=== PATIENT | male | born 1965 | race African-American/Black ===

== ENCOUNTER 2020-03-26 12:57 | Inpatient (IN) | payer OTHER ==
--- NOTE | 2020-03-26 13:24 | BHS.RME ---
Substance Use & Tx History - Substance Use History Alcohol Substance amount: 4 bottles 40 oz Frequency of use: Daily Substance route: Oral Date of Last Use: 03/22/20 Cocaine-Crack Substance amount: $80 Frequency of use: Less than 3 times per week Substance route: Smoking Date of Last Use: 03/21/20 Nicotine Substance amount: 1 pack Frequency of use: Daily Substance route: Smoking Date of Last Use: 03/26/20 Physical/Psych/Mental Status - Behavior Eye Contact: Normal - Cooperativeness Cooperativeness: Cooperative - Thinking Thought Processes: Tight, Logical, Goal Directed - Physical Health Problems Is patient presently having any pain?: No Does patient presently have any injuries (include location): No Does patient currently have a fever: No Is patient : No CIWA Nausea/Vomitin-No Nausea/No Vomiting Muscle Tremors: None Anxiety: 0-No Anxiety, at Ease Agitation: 0-Normal Activity Paroxysmal Sweats: No Perspiration Orientation: 0-Oriented Tacttile Disturbances: 0-None Auditory Disturbances: 0-None Visual Disturbances: 0-None Headache: 0-None Present CIWA-Ar Total Score: 0
[2020-03-26 17:22] VITALS: BMI 29.5
--- NOTE | 2020-03-26 17:52 | HP ---
CIWA Score Nausea/Vomitin-No Nausea/No Vomiting Muscle Tremors: None Anxiety: 0-No Anxiety, at Ease Agitation: 0-Normal Activity Paroxysmal Sweats: No Perspiration Orientation: 0-Oriented Tacttile Disturbances: 0-None Auditory Disturbances: 0-None Visual Disturbances: 0-None Headache: 0-None Present CIWA-Ar Total Score: 0 - Admission Criteria OASAS Guidelines: Admission for Medically Managed Detox: Requires at least one of the followin. CIWA greater than 12 2. Seizures within the past 24 hours 3. Delirium tremens within the past 24 hours 4. Hallucinations within the past 24 hours 5. Acute intervention needed for co occurring medical disorder 6. Acute intervention needed for co occurring psychiatric disorder 7. Severe withdrawal that cannot be handled at a lower level of care (continued vomiting, continued diarrhea, abnormal vital signs) requiring intravenous medication and/or fluids 8. Admitting History and Physical - Admission History of Present Illness: 54 y.o. M PMHx HTN presenting to [facility] for rehab. Patient was examined in the room and is in no acute distress. 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 Back surgery pin placement. 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 History of Recent Travel: No Admission ROS [facility] Allergies/Adverse Reactions: Allergies Allergy/AdvReac Type Severity Reaction Status Date / Time Penicillins Allergy Verified 03/26/20 14:46 Exam Limitations: No Limitations - Ebola screening Have you traveled outside of the country in the last 21 days: No Have you had contact with anyone from an Ebola affected area: No Have you been sick,other than usual withdrawal symptoms: No Do you have a fever: No - Review of Systems Constitutional: No Symptoms Reported EENT: denies: Blurred Vision, Double Vision Respiratory: reports: SOB with Exertion. denies: Cough Cardiac: denies: Chest Pain, Lightheadedness GI: denies: Constipated, Diarrhea, Nausea, Vomiting : denies: Burning, Dysuria Musculoskeletal: denies: Muscle Pain, Muscle Weakness Neuro: denies: Headache, Dizziness Hematology: denies: Blood Clots Psychiatric: reports: No Sypmtoms Reported, Judgement Intact, Mood/Affect Appropiate, Orientated x3 Patient History - Smoking Cessation Smoking history: Current every day smoker Initiated information on smoking cessation: Yes 'Breaking Loose' booklet given: 03/26/20 Admission Physical Exam [facility] - Vital Signs Vital Signs: Vital Signs - 24 hr 03/26/20 17:20 Temperature 97.7 F Pulse Rate 81 Respiratory 18 Rate Blood Pressure 118/74 - Physical General Appearance: Yes: Within Normal Limits, No Apparent Distress, Nourished, Appropriately Dressed Respiratory: Yes: Within Normal Limits, Lungs Clear, Normal Breath Sounds, No Respiratory Distress, No Accessory Muscle Use Cardiology: Yes: Within Normal Limits, Regular Rhythm, Regular Rate. No: JVD, Murmur Abdominal: Yes: Within Normal Limits, Normal Bowel Sounds, Non Tender, Flat, Soft. No: Tenderness Back: Yes: Within Normal Limits, Normal Inspection. No: CVA Tenderness Extremities: Yes: Within Normal Limits, Normal Inspection, Normal Range of Motion, Non-Tender. No: Swelling Neurological: Yes: Within Normal Limits, Fully Oriented, Alert, Normal Mood/Affect, Normal Response Integumentary: Yes: Within Normal Limits, Normal Color, Dry, Warm - Diagnostic (1) Crack cocaine use Current Visit: Yes Status: Acute (2) Alcohol dependence Current Visit: Yes Status: Acute (3) Hypertension Current Visit: Yes Status: Acute Cleared for Admission [facility] - Detox or Rehab Claeared for Rehab Admission: Yes Breathalyzer - Breathalyzer Breathalyzer: 0 Vital Signs - Vital Signs Vital signs refused: Yes Temperature: 97.7 F Pulse Rate: 81 Respiratory Rate: 18 Blood Pressure: 118/74 - Height Height: 1.96 m - Weight Weight: 112.945 kg - BMI Body Mass Index (BMI): 29.5 Urine Drug Screen - Test Device Lot number: [id number] Expiration date: 02/11/22 - Control Is test valid?: Yes - Results Drug screen NEGATIVE: No Urine drug screen results: THC-Marijuana, BULL-Cocaine Inpatient Rehab Admission - Rehab Decision to Admit Inpatient rehab admission?: Yes - Initial Determination Are CD services needed?: No Free of communicable disease: No Not in need of hospitalization: No - Rehab Admission Criteria Previous failed treatment: Yes Poor recovery environment: Yes Comorbidities: Yes Lacks judgement: No Patient is meeting Inpatient Rehab admission criteria:: Yes
[2020-03-26] MEDS ORDERED: MAGNESIUM CITRATE 300 ML BOTTLE PO PRN (17:58)
[2020-03-26] MEDS ORDERED: LOPERAMIDE HCL 2 MG CAPSULE PO PRN (17:58)
[2020-03-26] MEDS ORDERED: guaiFENesin 200 MG/10 ML 10 ML UNIT-DOSE CUPS PO PRN (17:58)
[2020-03-26] MEDS ORDERED: P-EPHED 60MG/TRIPROLIDI 2.5MG TABLET PO PRN (17:58)
[2020-03-26] MEDS ORDERED: MAGNESIUM HYDROX 2400MG/30ML ORAL SUSPENSION 30 ML CUP PO PRN (17:58)
[2020-03-26] MEDS ORDERED: ACETAMINOPHEN 325 MG TABLET (FP) PO PRN (17:58)
[2020-03-26] MEDS ORDERED: IBUPROFEN 400 MG TABLET (FP) PO PRN (17:58)
[2020-03-26] MEDS ORDERED: NICOTINE POLACRILEX 2 MG GUM BC PRN (17:58)
[2020-03-26] MEDS ORDERED: TUBERCULIN PPD 5 TU/0.1ML VIAL ID ONE (19:47)
[2020-03-26] MEDS: hydrOXYzine PAMOATE 25 MG CAPSULE (FP) PO SCH ×2 (19:51→21:58)
[2020-03-26] MEDS: THIAMINE HCL 100 MG TABLET (FP) PO SCH (21:58)
[2020-03-26] MEDS: MELATONIN 5 MG TABLETS PO SCH (21:58)
[2020-03-27] MEDS: hydrOXYzine PAMOATE 25 MG CAPSULE (FP) PO SCH (06:36)
--- NOTE | 2020-03-27 08:32 | PN ---
[facility] Progress Note Note: Patient requesting that we discontinue Vistaril. Patient's request was honored.
--- NOTE | 2020-03-27 09:54 | EKG ---
Test Reason : Blood Pressure : / mmHG Vent. Rate : 052 BPM Atrial Rate : 052 BPM P-R Int : 144 ms QRS Dur : 102 ms QT Int : 408 ms P-R-T Axes : 041 046 038 degrees QTc Int : 379 ms SINUS BRADYCARDIA OTHERWISE NORMAL ECG NO PREVIOUS ECGS AVAILABLE Confirmed by ROSHAN RUANO MD ([id number]) on 03/27/2020 9:54:01 AM Referred By: Confirmed By:ROSHAN RUANO MD
[2020-03-27] MEDS: PRENATAL VITAMINS W/ FOLIC ACID TABLET (FP) PO SCH (10:25)
[2020-03-27] MEDS: NICOTINE 7 MG/24 HOURS TOPICAL PATCH TD SCH (10:25)
[2020-03-27 11:06] LABS: BILIRUBIN,TOTAL 0.9 mg/dL (0.2-1); BLOOD UREA NITROGEN 18.4 mg/dL (7-18); CALCIUM 9.2 mg/dL (8.5-10.1); CREATININE 1.4 mg/dL (0.55-1.3); POTASSIUM 4.2 mmol/L (3.5-5.1); TOT PROT 6.5 g/dl (6.4-8.2)
[2020-03-27 11:12] LABS: HEMATOCRIT 39.6 % (35.4-49); HEMOGLOBIN 12.8 GM/dL (11.7-16.9); MCH 28.2 pg (25.7-33.7); MCHC 32.4 g/dl (32.0-35.9); MEAN CELL VOLUME 87.2 fl (80-96); MEAN PLT VOLUME 8.8 fl (7.5-11.1); PLATELET COUNT 331 K/MM3 (134-434); RBC 4.54 M/mm3 (4.00-5.60); RDW 13.9 % (11.9-15.9); WHITE BLOOD COUNT 5.3 K/mm3 (4.0-10.0)
[2020-03-27 11:38] LABS: SICKLE CELL SCREEN NEGATIVE (NEGATIVE)
[2020-03-27] MEDS: THIAMINE HCL 100 MG TABLET (FP) PO SCH (21:44)
[2020-03-27] MEDS: MELATONIN 5 MG TABLETS PO SCH (21:44)
[2020-03-28] MEDS: NICOTINE 7 MG/24 HOURS TOPICAL PATCH TD SCH (10:51)
[2020-03-28] MEDS: PRENATAL VITAMINS W/ FOLIC ACID TABLET (FP) PO SCH (10:51)
[2020-03-28] MEDS: MELATONIN 5 MG TABLETS PO SCH (21:13)
[2020-03-28] MEDS: THIAMINE HCL 100 MG TABLET (FP) PO SCH (21:13)
[2020-03-29] MEDS: PRENATAL VITAMINS W/ FOLIC ACID TABLET (FP) PO SCH (10:43)
[2020-03-29] MEDS: NICOTINE 7 MG/24 HOURS TOPICAL PATCH TD SCH (10:43)
[2020-03-29] MEDS: MELATONIN 5 MG TABLETS PO SCH (21:44)
[2020-03-29] MEDS: THIAMINE HCL 100 MG TABLET (FP) PO SCH (21:44)
[2020-03-30] MEDS: NICOTINE 7 MG/24 HOURS TOPICAL PATCH TD SCH (09:36)
[2020-03-30] MEDS: PRENATAL VITAMINS W/ FOLIC ACID TABLET (FP) PO SCH (09:36)
[2020-03-30 16:36] LABS: URINE APPEARANCE CLEAR; URINE BILIRUBIN NEGATIVE (NEGATIVE); URINE COLOR YELLOW; URINE GLUCOSE (UA) NEGATIVE (NEGATIVE); URINE KETONE NEGATIVE (NEGATIVE); URINE LEUK ESTERASE NEGATIVE (NEGATIVE); URINE NITRITE NEGATIVE (NEGATIVE); URINE PROTEIN NEGATIVE (NEGATIVE); URINE UROBILINOGEN 0.2 mg/dL (0.2-1.0)
[2020-03-30] MEDS: MELATONIN 5 MG TABLETS PO SCH (21:18)
[2020-03-30] MEDS: THIAMINE HCL 100 MG TABLET (FP) PO SCH (21:18)
--- NOTE | 2020-03-31 08:30 | PN ---
Teaching Attending Note Name of Resident: Neptali Banks ATTENDING PHYSICIAN STATEMENT I saw and evaluated the patient. I reviewed the resident's note and discussed the case with the resident. I agree with the resident's findings and plan as documented. SUBJECTIVE: OBJECTIVE: ASSESSMENT AND PLAN: Agree with resident's findings and plan for detox.
[2020-03-31] MEDS: NICOTINE 7 MG/24 HOURS TOPICAL PATCH TD SCH (10:42)
[2020-03-31] MEDS: PRENATAL VITAMINS W/ FOLIC ACID TABLET (FP) PO SCH (10:43)
[2020-03-31] MEDS: COLLOIDAL OATMEAL 1 BAR EACH TP PRN (11:29)
[2020-03-31] MEDS ORDERED: PT OWN MED DRAWER 7, Y5N ONE (18:35)
[2020-03-31] MEDS: MELATONIN 5 MG TABLETS PO SCH (22:07)
[2020-03-31] MEDS: THIAMINE HCL 100 MG TABLET (FP) PO SCH (22:07)
[2020-03-31] MEDS: MINERAL OIL/PETROLAT/WATER TOPICAL CREAM 113 GM JAR TP SCH (22:08)
[2020-04-01] MEDS: MAG HYDROX/AL HYDROX/SIMETH 30 ML UNIT-DOSE CUP PO PRN ×2 (01:43→07:34)
--- NOTE | 2020-04-01 01:49 | PN ---
[facility] Progress Note Note: pt c/o sudden onset left sided back pain this evening when lying down , after taking a shower . Denies trauma . Denies radiation of pain . Denies dysuria . h/o spine surgery at age 16 . Vital Signs - 24 hr 03/31/20 03/31/20 03/31/20 06:10 14:52 20:27 Temperature 98.5 F 97.9 F Pulse Rate 52 L Respiratory 18 Rate Blood Pressure 130/64 O2 Sat by Pulse 98 97 99 Oximetry (%) O : left flank tender to palpation . Antalgic gait . Neuro intact CBC, BMP 03/27/20 08:00 03/27/20 08:00 UA normal 03/27 . P : Tylenol, Robaxin, Lidocaine patch . Encouraged fluids endorsed to day staff for f/up
[2020-04-01] MEDS ORDERED: METHOCARBAMOL 500 MG TABLET PO ONE (01:50)
[2020-04-01] MEDS ORDERED: LIDOCAINE 5% TOPICAL PATCH TP ONE (04:00)
[2020-04-01] MEDS: PRENATAL VITAMINS W/ FOLIC ACID TABLET (FP) PO SCH (10:49)
[2020-04-01] MEDS: NICOTINE 7 MG/24 HOURS TOPICAL PATCH TD SCH (10:49)
[2020-04-01] MEDS: METHOCARBAMOL 500 MG TABLET PO SCH ×4 (10:52→21:14)
[2020-04-01] MEDS: MINERAL OIL/PETROLAT/WATER TOPICAL CREAM 113 GM JAR TP SCH ×2 (10:53→21:16)
[2020-04-01] MEDS ORDERED: IBUPROFEN 600 MG TABLET (FP) PO PRN (13:51)
[2020-04-01] MEDS ORDERED: LIDOCAINE PATCH REMOVAL MC ONE (14:00)
[2020-04-01] MEDS: COLLOIDAL OATMEAL 1 BAR EACH TP PRN (14:09)
[2020-04-01] MEDS: LIDOCAINE 5% TOPICAL PATCH TP SCH (14:53)
[2020-04-01] MEDS: THIAMINE HCL 100 MG TABLET (FP) PO SCH (21:14)
[2020-04-01] MEDS: MELATONIN 5 MG TABLETS PO SCH (21:14)
[2020-04-01] MEDS: LIDOCAINE PATCH REMOVAL MC SCH (21:14)
[2020-04-02] MEDS: LIDOCAINE 5% TOPICAL PATCH TP SCH (10:11)
[2020-04-02] MEDS: PRENATAL VITAMINS W/ FOLIC ACID TABLET (FP) PO SCH (10:11)
[2020-04-02] MEDS: NICOTINE 7 MG/24 HOURS TOPICAL PATCH TD SCH (10:12)
[2020-04-02] MEDS: MINERAL OIL/PETROLAT/WATER TOPICAL CREAM 113 GM JAR TP PRN (10:13)
[2020-04-02] MEDS: METHOCARBAMOL 500 MG TABLET PO SCH ×4 (10:13→21:45)
[2020-04-02] MEDS: MINERAL OIL/PETROLAT/WATER TOPICAL CREAM 113 GM JAR TP SCH ×2 (10:14→21:46)
[2020-04-02] MEDS: LIDOCAINE PATCH REMOVAL MC SCH (21:45)
[2020-04-02] MEDS: THIAMINE HCL 100 MG TABLET (FP) PO SCH (21:45)
[2020-04-02] MEDS: MELATONIN 5 MG TABLETS PO SCH (21:45)
[2020-04-03] MEDS: NICOTINE 7 MG/24 HOURS TOPICAL PATCH TD SCH (10:29)
[2020-04-03] MEDS: MINERAL OIL/PETROLAT/WATER TOPICAL CREAM 113 GM JAR TP SCH (10:29)
[2020-04-03] MEDS: METHOCARBAMOL 500 MG TABLET PO SCH ×4 (10:30→21:14)
[2020-04-03] MEDS: LIDOCAINE 5% TOPICAL PATCH TP SCH (10:30)
[2020-04-03] MEDS: PRENATAL VITAMINS W/ FOLIC ACID TABLET (FP) PO SCH (10:30)
[2020-04-03] MEDS: MINERAL OIL/PETROLAT/WATER TOPICAL CREAM 113 GM JAR TP PRN (15:17)
[2020-04-03] MEDS ORDERED: PT OWN MED DRAWER 7, Y5N ONE (15:18)
[2020-04-03] MEDS: MELATONIN 5 MG TABLETS PO SCH (21:14)
[2020-04-03] MEDS: THIAMINE HCL 100 MG TABLET (FP) PO SCH (21:14)
[2020-04-03] MEDS: LIDOCAINE PATCH REMOVAL MC SCH (21:15)
[2020-04-04] MEDS: COLLOIDAL OATMEAL 1 BAR EACH TP PRN (06:56)
[2020-04-04] MEDS: LIDOCAINE 5% TOPICAL PATCH TP SCH (10:34)
[2020-04-04] MEDS: PRENATAL VITAMINS W/ FOLIC ACID TABLET (FP) PO SCH (10:35)
[2020-04-04] MEDS: METHOCARBAMOL 500 MG TABLET PO SCH ×4 (10:35→21:22)
[2020-04-04] MEDS: NICOTINE 7 MG/24 HOURS TOPICAL PATCH TD SCH (10:35)
[2020-04-04] MEDS: LIDOCAINE PATCH REMOVAL MC SCH (21:21)
[2020-04-04] MEDS: THIAMINE HCL 100 MG TABLET (FP) PO SCH (21:22)
[2020-04-04] MEDS: MELATONIN 5 MG TABLETS PO SCH (21:22)
[2020-04-05] MEDS: PRENATAL VITAMINS W/ FOLIC ACID TABLET (FP) PO SCH (10:25)
[2020-04-05] MEDS: LIDOCAINE 5% TOPICAL PATCH TP SCH (10:25)
[2020-04-05] MEDS: NICOTINE 7 MG/24 HOURS TOPICAL PATCH TD SCH (10:25)
[2020-04-05] MEDS: METHOCARBAMOL 500 MG TABLET PO SCH ×4 (10:25→21:56)
[2020-04-05] MEDS: THIAMINE HCL 100 MG TABLET (FP) PO SCH (21:56)
[2020-04-05] MEDS: MELATONIN 5 MG TABLETS PO SCH (21:56)
[2020-04-05] MEDS: LIDOCAINE PATCH REMOVAL MC SCH (21:56)
[2020-04-05] MEDS: COLLOIDAL OATMEAL 1 BAR EACH TP PRN (21:58)
[2020-04-06] MEDS: PRENATAL VITAMINS W/ FOLIC ACID TABLET (FP) PO SCH (10:42)
[2020-04-06] MEDS: NICOTINE 7 MG/24 HOURS TOPICAL PATCH TD SCH (10:42)
[2020-04-06] MEDS: METHOCARBAMOL 500 MG TABLET PO SCH ×4 (10:43→22:09)
[2020-04-06] MEDS: LIDOCAINE 5% TOPICAL PATCH TP SCH (10:43)
[2020-04-06] MEDS: LIDOCAINE PATCH REMOVAL MC SCH (22:10)
[2020-04-06] MEDS: MELATONIN 5 MG TABLETS PO SCH (22:10)
[2020-04-06] MEDS: THIAMINE HCL 100 MG TABLET (FP) PO SCH (22:10)
[2020-04-06] MEDS: COLLOIDAL OATMEAL 1 BAR EACH TP PRN (22:11)
[2020-04-07 06:59] VITALS: BP 132/75; PULSE 52; TEMP 96.9
--- NOTE | 2020-04-07 09:44 | DS ---
[facility] Rehab Discharge Summary - [facility] Rehab Discharge Summary Admission Date: 03/26/20 Discharge Date: 04/07/20 - History Present History: Alcohol dependence, Cocaine dependence - Discharge Physical Exam Vital Signs: Vital Signs Temperature 96.9 F L 04/07/20 06:23 Pulse Rate 52 L 04/07/20 06:23 Respiratory Rate 18 04/07/20 06:23 Blood Pressure 132/75 04/07/20 06:23 O2 Sat by Pulse Oximetry (%) 96 04/07/20 06:23 ROS: denies shakes, headache, sweats, alcohol and cocaine cravings PE: alert and oriented x 3 skin warm and dry +perrla, eoms intact bl gi nt, nd ext full rom, amb ad milo no tremors denies SI/HI A/P: Alcohol dependence Cocaine dependence HTN Patient is medically stable for discharge To arranged aftercare independently due to pt preference. Patient states " I [place] [facility] go [facility] in [facility] However, patient could not remember name of facility. - Treatment Discharge Condition: Discharge condition good, Rehabilitated safely, Responded well, Outpatient referral accepted Hospital Course: Patient discharged from rehab today for alcohol and cocaine dependence. Patient is medically stable and denies SI/HI. During course of treatment, patient attended group meetings and 1:1 sessions with counseling team. He did have episodes of verbal aggression towards peers and staff. Patient redirected during these episodes by staff effectively and no physical altercations occurred during treatment. Aftercare to be arranged independently by patient as he prefers to arranged his own aftercare. Patient medically advised to follow up with PCP as recommended and to attend NA/AA group meetings to prevent relapse. Ambulatory Orders Methocarbamol [Robaxin -] 500 mg PO BID #20 tablet 04/07/20 - Medication Discharge Medications: Ambulatory Orders Methocarbamol [Robaxin -] 500 mg PO BID #20 tablet 04/07/20 - Medication-Assisted Treatment (MAT) Medication-Assisted Treatment (MAT): No - Discharge Instructions Diet, activity, other medical instructions: Diet: LUL as tolerated Activity: amb ad milo as tolerated Other medical instructions: f/u with pcp as recommended - Follow-up Referral Minutes to complete discharge: 30 - AMA Did Patient Leave Against Medical Advice: No
== END 2020-04-07 09:31 | disposition home or self-care (01) | DRG 772 ==
LOC: YASAS 12:57 → Y3W 18:17
PROVIDERS: ADMIT Allergy & Immunology; ATTEND Allergy & Immunology
PROC: HZ42ZZZ Group Counseling for Substance Abuse Treatment, Cognitive-Behavioral (ICD-10-PCS; principal; 2020-03-26)
DX: F10.20 Alcohol dependence, uncomplicated (principal); F14.20 Cocaine dependence, uncomplicated; F17.210 Nicotine dependence, cigarettes, uncomplicated; I10 Essential (primary) hypertension; M54.89 Other dorsalgia; R26.89 Other abnormalities of gait and mobility; Z99.89 Dependence on other enabling machines and devices; Z88.0 Allergy status to penicillin
CPT/HCPCS: 36415; 80053; 81003; 85027; 85660; 86780; 93005; 93010

== ENCOUNTER 2020-11-17 13:23 | Inpatient (IN) | payer OTHER ==
[2020-11-17 15:22] VITALS: BMI 30.6
[2020-11-17] MEDS ORDERED: IBUPROFEN 400 MG TABLET (FP) PO PRN (19:58)
[2020-11-17] MEDS ORDERED: P-EPHED 60MG/TRIPROLIDI 2.5MG TABLET PO PRN (19:58)
[2020-11-17] MEDS ORDERED: LOPERAMIDE HCL 2 MG CAPSULE PO PRN (19:58)
[2020-11-17] MEDS ORDERED: MAGNESIUM HYDROX 2400MG/30ML ORAL SUSPENSION 30 ML CUP PO PRN (19:58)
[2020-11-17] MEDS ORDERED: ACETAMINOPHEN 325 MG TABLET (FP) PO PRN (19:58)
[2020-11-17] MEDS ORDERED: hydrOXYzine PAMOATE 25 MG CAPSULE (FP) PO PRN (19:58)
[2020-11-17] MEDS ORDERED: guaiFENesin 200 MG/10 ML 10 ML UNIT-DOSE CUPS PO PRN (19:58)
[2020-11-17] MEDS ORDERED: MAGNESIUM CITRATE 300 ML BOTTLE PO PRN (19:58)
[2020-11-17] MEDS: MELATONIN 5 MG TABLETS PO SCH (22:45)
[2020-11-17] MEDS: THIAMINE HCL 100 MG TABLET (FP) PO SCH (22:46)
[2020-11-18 09:51] LABS: HEMOGLOBIN 11.9 GM/dL (11.7-16.9); MCH 28.7 pg (25.7-33.7); MEAN CELL VOLUME 86.9 fl (80-96); MEAN PLT VOLUME 8.7 fl (7.5-11.1); PLATELET COUNT 301 K/MM3 (134-434); RBC 4.15 M/mm3 (4.00-5.60); RDW 14.4 % (11.9-15.9); WHITE BLOOD COUNT 4.6 K/mm3 (4.0-10.0)
[2020-11-18 09:53] LABS: CALCIUM 8.2 mg/dL (8.5-10.1)
[2020-11-18 09:54] LABS: ALBUMIN 2.7 g/dl (3.4-5.0); BLOOD UREA NITROGEN 15.8 mg/dL (7-18)
[2020-11-18 09:57] LABS: CREATININE 1.1 mg/dL (0.55-1.3)
[2020-11-18] MEDS: PRENATAL VITAMINS W/ FOLIC ACID TABLET (FP) PO SCH (09:57)
[2020-11-18] MEDS: NICOTINE 21 MG/24 HOURS TOPICAL PATCH TD SCH (09:57)
[2020-11-18 09:59] LABS: BILIRUBIN,TOTAL 0.2 mg/dL (0.2-1); TOT PROT 5.9 g/dl (6.4-8.2)
[2020-11-18 14:50] LABS: PH,URINE 6.5 (5.0-8.0); URINE APPEARANCE CLEAR; URINE BILIRUBIN NEGATIVE (NEGATIVE); URINE COLOR YELLOW; URINE GLUCOSE (UA) NEGATIVE (NEGATIVE); URINE KETONE NEGATIVE (NEGATIVE); URINE LEUK ESTERASE NEGATIVE (NEGATIVE); URINE NITRITE NEGATIVE (NEGATIVE); URINE PROTEIN NEGATIVE (NEGATIVE); URINE UROBILINOGEN 0.2 mg/dL (0.2-1.0)
[2020-11-18] MEDS: THIAMINE HCL 100 MG TABLET (FP) PO SCH (21:11)
[2020-11-18] MEDS: MELATONIN 5 MG TABLETS PO SCH (21:11)
[2020-11-19] MEDS: NICOTINE 21 MG/24 HOURS TOPICAL PATCH TD SCH (10:47)
[2020-11-19] MEDS: PRENATAL VITAMINS W/ FOLIC ACID TABLET (FP) PO SCH (10:47)
[2020-11-19] MEDS: THIAMINE HCL 100 MG TABLET (FP) PO SCH (22:03)
[2020-11-19] MEDS: MELATONIN 5 MG TABLETS PO SCH (22:03)
[2020-11-20] MEDS: NICOTINE 21 MG/24 HOURS TOPICAL PATCH TD SCH (11:02)
[2020-11-20] MEDS: PRENATAL VITAMINS W/ FOLIC ACID TABLET (FP) PO SCH (11:02)
[2020-11-20] MEDS: MAG HYDROX/AL HYDROX/SIMETH 30 ML UNIT-DOSE CUP PO PRN (19:58)
[2020-11-20] MEDS: THIAMINE HCL 100 MG TABLET (FP) PO SCH (22:05)
[2020-11-20] MEDS: MELATONIN 5 MG TABLETS PO SCH (22:06)
[2020-11-21 06:06] LABS: SARS-CoV-2 NAA Not Detected (Not Detected)
[2020-11-21] MEDS: PRENATAL VITAMINS W/ FOLIC ACID TABLET (FP) PO SCH (10:40)
[2020-11-21] MEDS: NICOTINE 21 MG/24 HOURS TOPICAL PATCH TD SCH (10:40)
[2020-11-21] MEDS: NICOTINE POLACRILEX 2 MG GUM BC PRN (10:41)
[2020-11-21] MEDS: MAG HYDROX/AL HYDROX/SIMETH 30 ML UNIT-DOSE CUP PO PRN (21:02)
[2020-11-21] MEDS: MELATONIN 5 MG TABLETS PO SCH (21:03)
[2020-11-21] MEDS: THIAMINE HCL 100 MG TABLET (FP) PO SCH (21:03)
[2020-11-21] MEDS: AMMONIUM LACTATE 12% LOTION 225 GM BOTTLE TP SCH (21:03)
[2020-11-22] MEDS: PRENATAL VITAMINS W/ FOLIC ACID TABLET (FP) PO SCH (10:12)
[2020-11-22] MEDS: NICOTINE POLACRILEX 2 MG GUM BC PRN (10:12)
[2020-11-22] MEDS: AMMONIUM LACTATE 12% LOTION 225 GM BOTTLE TP SCH ×2 (10:12→22:17)
[2020-11-22] MEDS: NICOTINE 21 MG/24 HOURS TOPICAL PATCH TD SCH (10:12)
[2020-11-22] MEDS: THIAMINE HCL 100 MG TABLET (FP) PO SCH (22:16)
[2020-11-22] MEDS: MELATONIN 5 MG TABLETS PO SCH (22:16)
[2020-11-22] MEDS: MAG HYDROX/AL HYDROX/SIMETH 30 ML UNIT-DOSE CUP PO PRN (22:18)
[2020-11-23] MEDS: PRENATAL VITAMINS W/ FOLIC ACID TABLET (FP) PO SCH (10:54)
[2020-11-23] MEDS: NICOTINE 21 MG/24 HOURS TOPICAL PATCH TD SCH (10:54)
[2020-11-23] MEDS: AMMONIUM LACTATE 12% LOTION 225 GM BOTTLE TP SCH ×2 (10:55→21:03)
[2020-11-23] MEDS: THIAMINE HCL 100 MG TABLET (FP) PO SCH (21:02)
[2020-11-23] MEDS: NICOTINE POLACRILEX 2 MG GUM BC PRN (21:03)
[2020-11-23] MEDS: MELATONIN 5 MG TABLETS PO SCH (21:03)
[2020-11-24] MEDS: NICOTINE 21 MG/24 HOURS TOPICAL PATCH TD SCH (10:40)
[2020-11-24] MEDS: PRENATAL VITAMINS W/ FOLIC ACID TABLET (FP) PO SCH (10:40)
[2020-11-24] MEDS: AMMONIUM LACTATE 12% LOTION 225 GM BOTTLE TP SCH ×2 (10:41→22:01)
[2020-11-24 11:58] VITALS: BP 120/67; PULSE 55; TEMP 97.3
[2020-11-24] MEDS: THIAMINE HCL 100 MG TABLET (FP) PO SCH (22:01)
[2020-11-24] MEDS: MELATONIN 5 MG TABLETS PO SCH (22:01)
[2020-11-24] MEDS: MAG HYDROX/AL HYDROX/SIMETH 30 ML UNIT-DOSE CUP PO PRN (22:03)
[2020-11-25] MEDS: PRENATAL VITAMINS W/ FOLIC ACID TABLET (FP) PO SCH (10:26)
[2020-11-25] MEDS: AMMONIUM LACTATE 12% LOTION 225 GM BOTTLE TP SCH ×2 (10:26→21:07)
[2020-11-25] MEDS: NICOTINE 21 MG/24 HOURS TOPICAL PATCH TD SCH (10:26)
[2020-11-25] MEDS: THIAMINE HCL 100 MG TABLET (FP) PO SCH (21:07)
[2020-11-25] MEDS: MELATONIN 5 MG TABLETS PO SCH (21:07)
[2020-11-26] MEDS: PRENATAL VITAMINS W/ FOLIC ACID TABLET (FP) PO SCH (09:30)
[2020-11-26] MEDS: AMMONIUM LACTATE 12% LOTION 225 GM BOTTLE TP SCH (09:30)
[2020-11-26] MEDS: NICOTINE 21 MG/24 HOURS TOPICAL PATCH TD SCH (09:31)
== END 2020-11-26 10:51 | disposition home or self-care (01) | DRG 772 ==
LOC: YASAS 13:23 → Y5N 20:16
PROVIDERS: ADMIT Allergy & Immunology; ATTEND Allergy & Immunology
PROC: HZ42ZZZ Group Counseling for Substance Abuse Treatment, Cognitive-Behavioral (ICD-10-PCS; principal; 2020-11-17)
DX: F10.20 Alcohol dependence, uncomplicated (principal); F14.20 Cocaine dependence, uncomplicated; F17.220 Nicotine dependence, chewing tobacco, uncomplicated; I10 Essential (primary) hypertension; K29.50 Unspecified chronic gastritis without bleeding; M54.5 Low back pain; G89.29 Other chronic pain; Z91.14 Patient's other noncompliance with medication regimen; Z88.0 Allergy status to penicillin
CPT/HCPCS: 36415; 80053; 81003; 85027; 86780; C9803; U0003; U0005